=== PATIENT | female | born 1950 | race Caucasian/White ===

== ENCOUNTER 2016-06-26 18:05 | Emergency (ER) | payer OTHER ==
[~2016-06-26] VITALS: Ht 167.6 cm; Wt 83.9 kg
[~2016-06-26 18:05] MED LIST: ALBUAER3 IN; ASPI-231 PO; CITA-73 PO; CLON0.5T3 PO; FLUT500M2 IN; LEVO50TA7 PO; LISI-646 PO; LOVA20TA4 PO; METO50TA7 PO; NOR10T PO; PRED-188 GT; SULF-35 PO; TIOTCAP IN; WARF4TAB31 PO
[2016-06-26 18:14] VITALS: BP 0/0
[2016-06-26] MEDS ORDERED: AMIODARONE HCL (50 MG/ ML) 3 ML VIAL IV ONE (22:45)
[2016-06-26] MEDS ORDERED: CALCIUM CHLOR(10%) 100MG/ML 10ML SYRINGE IV ONE (22:45)
[2016-06-26] MEDS ORDERED: SODIUM BICARBONATE 8.4% INJ 50ML SYRINGE IV ONE (22:45)
[2016-06-26] MEDS ORDERED: EPINEPHrine HCL 1 MG/10 ML SYRG IV ONE (22:45)
== END 2016-06-26 18:18 | disposition expired ==
LOC: EDBD 18:05 → EDUNIT# 18:05 → ER 18:16
DX: I46.9 Cardiac arrest, cause unspecified (principal); I11.0 Hypertensive heart disease with heart failure; I50.9 Heart failure, unspecified; E07.9 Disorder of thyroid, unspecified; I25.810 Atherosclerosis of coronary artery bypass graft(s) without angina pectoris; J44.9 Chronic obstructive pulmonary disease, unspecified; Z87.891 Personal history of nicotine dependence; Z88.6 Allergy status to analgesic agent; Z88.1 Allergy status to other antibiotic agents; Z88.2 Allergy status to sulfonamides; Z95.0 Presence of cardiac pacemaker; Z79.82 Long term (current) use of aspirin; Z79.01 Long term (current) use of anticoagulants; I48.91 Unspecified atrial fibrillation
CPT/HCPCS: 92950; 99285; J0171; J0282; 31500